=== PATIENT | male | born 1975 | race Caucasian/White ===

== ENCOUNTER 2016-12-24 19:03 | Emergency (ER) | payer OTHER ==
[2016-12-24 19:45] LABS: HEMOGLOBIN 14.9 gm/dl (14.0-17.5); RED BLOOD COUNT 4.69 M/UL (4.20-5.50); WHITE BLOOD COUNT 7.3 K/UL (4.5-11.0)
[2016-12-24 20:02] LABS: BUN/CREATININE RATIO 10 (0-10)
== END 2016-12-24 22:06 | disposition home or self-care (01) ==
LOC: ER1 19:03
PROVIDERS: Physician Assistant Medical
DX: S39.012A Strain of muscle, fascia and tendon of lower back, initial encounter (principal); E11.65 Type 2 diabetes mellitus with hyperglycemia; X58.XXXA Exposure to other specified factors, initial encounter; Z79.84 Long term (current) use of oral hypoglycemic drugs; Z79.899 Other long term (current) drug therapy
CPT/HCPCS: 36415; 80053; 81001; 82009; 82962; 83690; 85025; 96361; 96374; 96375; 99284; J1885; J2270; J2405; J7030